=== PATIENT | female | born 2005 | race Caucasian/White ===

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

== ENCOUNTER 2025-01-17 09:53 | Outpatient (CLI) | payer OTHER, SELFPAY ==
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
== END 2025-01-17 09:54 | disposition home or self-care (01) ==
LOC: CHSLAB 09:58
PROVIDERS: PCP Family Medicine; Visit Provider Family Medicine
DX: R06.00 Dyspnea, unspecified (principal)
CPT/HCPCS: 71046

== ENCOUNTER 2025-01-23 09:02 | Outpatient (CLI) | payer OTHER, SELFPAY ==
--- OUTSIDE RECORDS SUMMARY | 2025-01-23 09:49 | XMS_ITS ---
Author Organization Unknown Address [address] [place] [phone] Phone Care Team Providers Care Conference Services Manager Name Role Phone KRISTINA Mckeon Attending Unavailable HEATHER CAMPA Primary Unavailable Immunization Immunization Date Status Additional Notes Code Code System MMR 03/22/2006 Completed 03 CVX MMR 10/14/2010 Completed 03 CVX Hep B, adolescent or pediatric 2005 Completed 08 CVX IPV 10/14/2010 Completed 10 CVX Hib, unspecified formulation 2005 Completed 17 CVX DTaP 06/19/2008 Completed 20 CVX varicella 03/22/2006 Completed 21 CVX varicella 10/14/2010 Completed 21 CVX Hib (PRP-T) 2005 Completed 48 CVX Hib (PRP-T) 2005 Completed 48 CVX Hib (PRP-T) 03/22/2006 Completed 48 CVX Hep A, ped/adol, 2 dose 04/16/2015 Completed 83 CVX Hep A, ped/adol, 2 dose 11/18/2017 Completed 83 CVX influenza, unspecified formulation 01/14/2006 Completed 88 CVX influenza, unspecified formulation 02/09/2007 Completed 88 CVX pneumococcal conjugate PCV 7 2005 Completed 100 CVX pneumococcal conjugate PCV 7 2005 Completed 100 CVX pneumococcal conjugate PCV 7 2005 Completed 100 CVX pneumococcal conjugate PCV 7 06/19/2008 Completed 100 CVX DTaP, 5 pertussis antigens 10/14/2010 Completed 10 6 CVX DTaP-Hep B-IPV 2005 Completed 110 CVX DTaP-Hep B-IPV 2005 Completed 110 CVX DTaP-Hep B-IPV 2005 Completed 110 CVX meningococcal MCV4P 05/09/2017 Completed 114 CVX Tdap 05/09/2017 Completed 115 CVX Pneumococcal conjugate PCV 13 10/14/2010 Completed 133 CVX Influenza, split virus, trivalent, PF 11/15/2011 Completed 140 CVX Influenza, split virus, quadrivalent, PF 11/28/2013 Completed 150 CVX Influenza, split virus, quadrivalent, PF 11/14/2014 Completed 150 CVX Influenza, split virus, quadrivalent, PF 11/18/2017 Completed 150 CVX Influenza, split virus, quadrivalent, PF 11/22/2019 Completed 150 CVX Influenza, split virus, quadrivalent, PF 11/28/2020 Completed 150 CVX HPV9 05/09/2017 Completed 165 CVX HPV9 11/18/2017 Completed 165 CVX meningococcal conjugate quadrivalent, MenACWY-TT (MCV4) 09/27/2022 Completed 203 CVX Social History Type Status Start Date End Date Code Code Syst em Smoking History Never smoker (Never Smoked) [id number] SNOMED CT Sex Female Hospital Discharge Instructions Should you have any questions prior to discharge, please contact a member of your healthcare team. If you have left the hospital and have any questions, please contact your primary care physician. Reason For Referral No Data Found Plan of Treatment MRI Low Ext Not Joint WO Contrast(85555) 11/03/2023 Encounters Encounter Diagnosis Start Date Code Code Sys tem Pain in right ankle and joints of right foot 4 SNOMED-CT Personal Care Team Section
--- OUTSIDE RECORDS SUMMARY | 2025-01-23 09:50 | XMS_ITS | Clinical Summary ---
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 Bone marrow edema 05/18/2019 Closed nondisplaced fracture of navicular bone of right foot, initial encounter 04/24/2019 Family History Medical History Relation Comments Diabetes Father Hypertension Father Relation Status Comments Brother Alive Father Alive Mother Alive Social History Tobacco Use Types Packs/Day Years Used Date Smoking Tobacco: Never Smokeless Tobacco: Never Alcohol Use Standard Drinks/Week Comments Never 0 (1 standard drink = 0.6 oz pur e alcohol) AUDIT-C Answer Date Recorded Frequency of Alcohol Consumption Never 04/23/2019 Average Number of Drinks Not on file 020 Frequency of Binge Drinking Not on file 04/07 Comments Unknown Sex and Gender Information Value Date Recorded Sex Assigned at Not on file Legal Sex Female 4:00 PM CDT Gender Identity Not on file Sexual Orientation Not on file Last Filed Vital Signs Vital Sign Reading Time Taken Comments Blood Pressure - - Pulse - - Temperature - - Respiratory Rate - - Oxygen Saturation - - Inhaled Oxygen Concentration - - Weight 89.8 kg (198 lb) 04/23/2019 2:59 PM CDT Height 165.1 cm (5' 5) 04/23/2019 2:59 PM CDT Body Mass Index 32.95 04/23/2019 2:59 PM CDT Body Mass Index Percentile 98.30% 04/23/2019 2:5 9 PM CDT Growth Chart: CDC (Girls, 2- 20 Years) Plan of Treatment Health Maintenance Due Date Last Done Comments Annual Physical 2008 DTaP, Tdap and Td Vaccines (5 - Tdap) 2016 10/14/2010, 2005, 2005, Additional history exists Meningococcal B Vaccine (1 of 2 - Standard) 2021 Hepatitis C 2023 COVID-19 Vaccine (1 - season) 2024 Influenza Adult (#1) 2024 11/15/2011 Hepatitis B Vaccines Completed 2005, 2005, 2005 Pneumococcal Vaccine: Pediatrics (0 to 5 Years) and At-Risk Patients (6 to 49 Years) Aged Out 10/14/2010 No longer eligible based on patient's age to complete this topic Meningococcal Vaccine Aged Out 05/09/2017 No kris milana eligible based on patient's age to complete this topic HPV Vaccines Completed 11/18/2017, 05/09/2017 Hepatitis A Vaccines Aged Out No long er eligible based on patient's age to complete this topic RSV Immunizations Under 20 Months Aged Out No longer eligible based on patient's age to complete this topic Insurance [place] Care Teams Executive Compensation Analyst Relationship Specialty Start Date End Date Kyle Rey MD [address] [place] [address] PCP - General FAMILY PRACTICE 04/23/19
--- OUTSIDE RECORDS SUMMARY | 2025-01-23 09:50 | XMS_ITS ---
Author Organization Unknown Address [address] [place] [phone] Phone Care Team Providers Care Public Health Epidemiologist Name Role Phone KRISTINA Mckeon Attending Unavailable [...] quadrivalent, MenACWY-TT (MCV4) 09/27/2022 Completed 203 CVX Results MRI LE ANY JOINT WO CONTRAST - Completed: 11/03/2023 12:20 LOINC: EXAM DESCRIPTION: MRI LE ANY JOINT WO CONTRAST REASON FOR STUDY: Right ankle MRI wo contrast. +/-1 month of right ankle pain radiating into the pt's foot; pt has had similar s/s twice before, once due to jumping from a height; ambulation relatively dependent on ortho boot. No traumatic incident this time, but pt does walk extensively on concrete at work. Duration: c.1 month of s/s. TECHNIQUE: Multiplanar, multisequence MRI of the right ankle was performed without contrast. COMPARISON: 10/07/2023 FINDINGS: Medially, the posterior tibialis, flexor hallucis and flexor digitorum tendons are intact. Flexor hallucis accessory longus is present with subacute denervation. The deltoid and tibiospring ligaments are intact. The spring ligament is intact. The tarsal tunnel appears normal. Laterally, the peroneus longus and brevis tendons are normal in course and morphology. The superior peroneal retinaculum is intact. The syndesmosis and syndesmotic ligaments are intact. The lower ankle ligaments are intact. Posteriorly, the Achilles is normal. There is no retrocalcaneal bursitis. Intrinsically, there is no evidence of a calcaneal stress fracture. The plantar fascia is normal. The sinus tarsi fat is preserved. Anteriorly, the ankle extensors are normal in course and morphology. The talar dome is intact without evidence of an osteochondral lesion. Small ankle effusion is present. 2 part navicular is present. There is mild medial subluxation of the predominant navicular fragment with diminutive bone laterally, sclerosis and marrow edema. A smaller more superolateral fragment is present which partially articulates with the talus, and the intermediate and lateral cuneiform with chronic remodeling. There is marrow edema involving the lateral cuneiform. Talonavicular joint chondrosis is present. The Lisfranc ligament is intact. Dorsal foot subcutaneous edema is present. Ankle subcutaneous edema is present. IMPRESSION: ? ? 2 part right navicular with mild medial subluxation of the predominant navicular fragment with diminutive bone laterally, sclerosis and marrow edema. A smaller more superolateral fragment is present which partially articulates with the talus, and the intermediate and lateral cuneiform with chronic remodeling. There is marrow edema involving the lateral aspect of the predominant navicular fragment and the lateral cuneiform with mild talonavicular chondrosis. 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 This can be correlated with patient history. May consider further evaluation with CT for better assessment of osseous anatomy if surgical planning is considered. ? ? Small right ankle effusion. ? ? Dorsal right foot and ankle subcutaneous edema. THIS IS AN ELECTRONICALLY VERIFIED FINAL REPORT 11/04/2023 9:30 AM - Electronically signed by Maurizio Buchanan M.D. MF: [id number] Report ID: [id number] Reading Location: [id number] Social History Type Status Start Date End Date Code Code Syst em Smoking History Never smoker (Never Smoked) [id number] SNOMED CT Sex Female Hospital Discharge Instructions Should you have any questions prior to discharge, please contact a member of your healthcare team. If you have left the hospital and have any questions, please contact your primary care physician. Reason For Referral No Data Found Plan of Treatment MRI Low Ext Not Joint WO Contrast([id number]) 11/03/2023 Encounters Encounter Diagnosis Start Date Code Code Sys tem Effusion, right ankle 11/03/2023 SNOMED -CT Personal Care Team Section Imaging Narrative Notes
--- OUTSIDE RECORDS SUMMARY | 2025-01-23 09:50 | XMS_ITS ---
Author Organization Unknown Address [address] [place] [phone] Phone Care Team Providers Care Store Grocery Merchandiser Name Role Phone KRISTINA Mckeon Attending Unavailable [...] em Smoking History Never smoker (Never Smoked) [id number] SNOMED CT Sex Female Hospital Discharge Instructions Should you have any questions prior to discharge, please contact a member of your healthcare team. If you have left the hospital and have any questions, please contact your primary care physician. Reason For Referral No Data Found Plan of Treatment MRI Low Ext Not Joint WO Contrast([id number]) 11/03/2023 Encounters Encounter Diagnosis Start Date Code Code Sys tem Pain in right ankle and joints of right foot 4 SNOMED-CT Personal Care Team Section
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
--- OUTSIDE RECORDS SUMMARY | 2025-01-23 09:51 | XMS_ITS ---
Author Organization Unknown Address [address] [place] [phone] Phone Care Team Providers Care Restaurant Mgr Name Role Phone MICH Jones Attending Unavailable HEATHER CAMPA Primary Unavailable Immunization [...] em Smoking History Never smoker (Never Smoked) [id number] SNOMED CT Sex Female Hospital Discharge Instructions Should you have any questions prior to discharge, please contact a member of your healthcare team. If you have left the hospital and have any questions, please contact your primary care physician. Reason For Referral No Data Found Plan of Treatment MRI Low Ext Not Joint WO Contrast(70357) 11/03/2023 Encounters Encounter Diagnosis Start Date Code Code Sys tem Pleurisy 01/08/2025 SNOMED-CT Personal Care Team Section
--- OUTSIDE RECORDS SUMMARY | 2025-01-23 09:51 | XMS_ITS ---
Author Organization Unknown Address [address] [place] [address] [phone] Phone Care Team Providers Care Self Propelled Dredge Operator Name Role Phone KRISTINA Mckeon Attending Unavailable [...] em Smoking History Never smoker (Never Smoked) [id number] SNOMED CT Sex Female Hospital Discharge Instructions Should you have any questions prior to discharge, please contact a member of your healthcare team. If you have left the hospital and have any questions, please contact your primary care physician. Reason For Referral No Data Found Plan of Treatment MRI Low Ext Not Joint WO Contrast(00905) 11/03/2023 Encounters Encounter Diagnosis Start Date Code Code Sys tem Other osteonecrosis, right foot 01/03/2024 SNOMED-CT Personal Care Team Section
--- OUTSIDE RECORDS SUMMARY | 2025-01-23 09:51 | XMS_ITS ---
Author Organization Unknown Address [address] [place] [address] [phone] Phone Care Team Providers Care Educational Therapy Teacher Name Role Phone KRISTINA Mckeon Attending Unavailable [...] em Smoking History Never smoker (Never Smoked) [id number] SNOMED CT Sex Female Hospital Discharge Instructions Should you have any questions prior to discharge, please contact a member of your healthcare team. If you have left the hospital and have any questions, please contact your primary care physician. Reason For Referral No Data Found Plan of Treatment MRI Low Ext Not Joint WO Contrast(74729) 11/03/2023 Encounters Encounter Diagnosis Start Date Code Code Sys tem Other specified disorders of bone, ankle and foot 11/07 SNOMED-CT Personal Care Team Section
== END 2025-01-23 09:03 | disposition home or self-care (01) ==
PROVIDERS: PCP Family Medicine; Visit Provider Family Medicine
DX: R06.00 Dyspnea, unspecified (principal)
CPT/HCPCS: 94060; 94726; 94729